=== PATIENT | male | born 1985 | race American Indian/Alaskan Native ===

== ENCOUNTER 2017-11-22 16:34 | Emergency (ER) | payer OTHER ==
[2017-11-22] MEDS ORDERED: NACL 0.9% 1000 ML 1,000 ML IV ONE (17:08)
[2017-11-22] MEDS ORDERED: XOPENEX IH ONE (17:08)
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
--- NOTE | 2017-11-22 17:30 | XRay Report ---
FINAL REPORT EXAM: XR CHEST 1V AP HISTORY: sob/chest pain TECHNIQUE: upright single view chest PRIORS: None. FINDINGS: Cardiac and mediastinal contours are unremarkable. No focal pulmonary infiltrate is identified. No pleural fluid collection seen. Pulmonary vasculature is unremarkable. IMPRESSION: Negative single-view chest
[2017-11-22 18:08] VITALS: BP 141/102
[2017-11-22 18:54] LABS: Basophils % (Auto) 0.4 % (0.0-1.8); Eosinophils % (Auto) 0.2 % (0.0-4.3); Hematocrit 45.5 % (35.5-45.6); Hemoglobin 15.9 gm/dl (11.8-15.2); Lymphocytes # (Auto) 2.8 K/mm3 (1.2-5.4); Lymphocytes % (Auto) 32.5 % (13.4-35.0); Mean Corpuscular HGB Conc 35 % (32-34); Mean Corpuscular Hemoglobin 27 pg (28-32); Mean Corpuscular Volume 77 fl (84-94); Monocytes # (Auto) 0.6 K/mm3 (0.0-0.8); Monocytes % (Auto) 7.2 % (0.0-7.3); Platelet Count 262 K/mm3 (140-440); Red Blood Count 5.91 M/mm3 (3.65-5.03); Red Cell Distribution Width 14.2 % (13.2-15.2)
[2017-11-22 19:03] LABS: BUN/Creatinine Ratio 12; Blood Urea Nitrogen 13 mg/dL (9-20); Calcium 8.5 mg/dL (8.4-10.2); Hemolysis Index 11
== END 2017-11-22 19:26 | disposition home or self-care (01) ==
LOC: ED 16:34
DX: J98.01 Acute bronchospasm (principal)
CPT/HCPCS: 36415; 71045; 80048; 84484; 85025; 94640; 96361; 96374; 99285; J2930; J7030

== ENCOUNTER 2020-08-12 15:33 | Emergency (ER) | payer SELFPAY ==
--- NOTE | 2020-08-12 16:44 | Emergency Department Report ---
ED Rash HPI - HPI Chief Complaint: Skin Rash Stated Complaint: POSS SCABIES Time Seen by Provider: 08/12/20 16:31 Duration: 5 Days Location: Other Suspected Cause: Other Rash Symptoms: Yes Itching, No Facial Swelling, No Tongue/Oral Swelling, No Breathing Difficulties, No Choking Sensation, No Wheezing/Dyspnea, No Peeling, No Blistering, No Fever, No Lightheaded, No Myalgias Severity: mild ED Review of Systems ROS: Stated complaint: POSS SCABIES Other details as noted in HPI Comment: All other systems reviewed and negative ED Past Medical Hx - Past Medical History Hx Asthma: Yes - Surgical History Past Surgical History?: No - Social History Smoking Status: Never Smoker Substance Use Type: None - Medications Home Medications: Home Medications Medication Instructions Recorded Confirmed Last Taken Type predniSONE [Deltasone] 20 mg PO QDAY #4 tab 11/22/17 Unknown Rx ALBUTEROL NEB's [Proventil 0.083% 2.5 mg IH TID PRN #1 box 05/30/18 Unknown Rx NEBS] Albuterol Mdi (or & Nicu Only) 2 puff IH QID PRN #1 inhalation 05/30/18 Unknown Rx [ProAir HFA Inhaler] predniSONE [Deltasone] 40 mg PO BID #8 tablet 05/30/18 Unknown Rx Permethrin [Nix LIQUID] 60 ml TP ONCE #60 liquid 08/12/20 Unknown Rx Rash Exam - Exam General: Vital signs noted. No distress. Alert and acting appropriately. HEENT: No Periorbital Edema, No Conjuctival Injection, No Chemosis, No Perioral Edema, No Tongue Edema, No Uvular Edema, No Compromised Airway, No Drooling Lungs: Yes Good Air Exchange (Normal Breath Sounds), No Wheezes, No Ronchi, No Stridor, No Cough, No Labored Respirations, No Retractions, No Use of Accessory Muscles, No Other Abnormal Lung Sounds Heart: Yes Regular, No Murmur Skin: Yes Erythema, No Maculopapular Rash, No Morbilliform rash, No Bulla(e), No Excoriations, No Weeping, No Edema, No Encrustations, No Other Other: Positive: Abdomen Normal, Neurologic Normal, Musculoskeletal Normal ED Course Vital Signs 08/12/20 16:34 Temperature 98.4 F Pulse Rate 114 H Respiratory 16 Rate Blood Pressure 167/105 O2 Sat by Pulse 98 Oximetry Critical care attestation.: If time is entered above; I have spent that time in minutes in the direct care of this critically ill patient, excluding procedure time. ED Disposition Clinical Impression: Rash and nonspecific skin eruption Disposition: DC-01 TO HOME OR SELFCARE Is pt being admited?: No Does the pt Need Aspirin: No Condition: Stable Instructions: Rash, Adult Prescriptions: Permethrin [Nix LIQUID] 60 ml TP ONCE #60 liquid Referrals: [facility] [Provider Group] - 3-5 Days
[2020-08-12 17:17] VITALS: BP 144/98
== END 2020-08-12 17:16 | disposition home or self-care (01) ==
LOC: ED 15:33
DX: R21 Rash and other nonspecific skin eruption (principal); J45.909 Unspecified asthma, uncomplicated; Z79.899 Other long term (current) drug therapy
CPT/HCPCS: 99282

== ENCOUNTER 2021-05-20 05:47 | Emergency (ER) | payer SELFPAY ==
[2021-05-20] MEDS ORDERED: predniSONE 20 MG TAB PO ONE (06:20)
[2021-05-20] MEDS ORDERED: IBUPROFEN 800 MG TAB PO ONE (06:20)
[2021-05-20] MEDS ORDERED: diphenhydrAMINE 25 MG CAP PO ONE (06:20)
--- NOTE | 2021-05-20 06:35 | XRay Report ---
XR chest routine 2V INDICATION / CLINICAL INFORMATION: sob chest pain. COMPARISON: 05/30/2018 FINDINGS: SUPPORT DEVICES: None. HEART /PULMONARY VASCULATURE: No significant abnormality. LUNGS / PLEURA: No significant pulmonary or pleural abnormality. No pneumothorax. ADDITIONAL FINDINGS: No significant additional findings. IMPRESSION: 1. No acute findings. Signer Name: Khris Eduardo MD Signed: 05/20/2021 6:31 AM Workstation Name: [id number]
--- NOTE | 2021-05-20 06:42 | Emergency Department Report ---
ED General Adult HPI - General Chief complaint: Chest Pain Stated complaint: CHEST PAIN Source: patient Mode of arrival: Ambulatory Limitations: No Limitations - History of Present Illness Initial comments: Patient 35-year-old male with bronchitis and asthma. Presents with sinus congestion rhinorrhea cough chest wall pain with cough. Patient denies shortness of breath there is no dizziness no lightheadedness no nausea or vomiting. Patient denies fevers or chills however does endorse malaise. Sinus and head pressure. Symptoms are exacerbated by movement and position. Symptoms are relieved by rest. Cough is productive green per patient. Patient endorse noc wheezing. . - Related Data Previous Rx's Medication Instructions Recorded Last Taken Type predniSONE [Deltasone] 20 mg PO QDAY #4 tab 11/22/17 Unknown Rx ALBUTEROL NEB's [Proventil 0.083% 2.5 mg IH TID PRN #1 box 05/30/18 Unknown Rx NEBS] Albuterol Mdi (or & Nicu Only) 2 puff IH QID PRN #1 inhalation 05/30/18 Unknown Rx [ProAir HFA Inhaler] predniSONE [Deltasone] 40 mg PO BID #8 tablet 05/30/18 Unknown Rx Permethrin [Nix LIQUID] 60 ml TP ONCE #60 liquid 08/12/20 Unknown Rx Albuterol Mdi (or & Nicu Only) 2 puff IH QID PRN #8.5 gram 05/20/21 Unknown Rx [ProAir HFA Inhaler] Azithromycin 500 mg PO DAILY #5 tablet 05/20/21 Unknown Rx Ibuprofen [Motrin 800 MG tab] 800 mg PO Q8HR PRN #30 tablet 05/20/21 Unknown Rx predniSONE [Deltasone] 40 mg PO QDAY 5 Days #10 tab 05/20/21 Unknown Rx Allergies Allergy/AdvReac Type Severity Reaction Status Date / Time No Known Allergies Allergy Unverified 11/22/17 17:00 ED Review of Systems ROS: Stated complaint: CHEST PAIN Other details as noted in HPI Constitutional: malaise. denies: chills, fever Eyes: denies: eye pain, eye discharge, vision change ENT: ear pain, throat pain, congestion Respiratory: cough, wheezing. denies: stridor Cardiovascular: chest pain (chest wall pain with cough ) Endocrine: no symptoms reported, intolerance to heat Gastrointestinal: denies: abdominal pain, nausea, vomiting, diarrhea Genitourinary: denies: urgency, dysuria Musculoskeletal: denies: back pain, joint swelling, arthralgia Skin: denies: rash, lesions Neurological: denies: headache, weakness, paresthesias, vertigo Psychiatric: denies: anxiety, depression Hematological/Lymphatic: denies: easy bleeding, easy bruising ED Past Medical Hx - Past Medical History Previous Medical History?: Yes Hx Asthma: Yes - Surgical History Past Surgical History?: No - Social History Smoking Status: Never Smoker Substance Use Type: None - Medications Home Medications: Home Medications Medication Instructions Recorded Confirmed Last Taken Type predniSONE [Deltasone] 20 mg PO QDAY #4 tab 11/22/17 Unknown Rx ALBUTEROL NEB's [Proventil 0.083% 2.5 mg IH TID PRN #1 box 05/30/18 Unknown Rx NEBS] Albuterol Mdi (or & Nicu Only) 2 puff IH QID PRN #1 inhalation 05/30/18 Unknown Rx [ProAir HFA Inhaler] predniSONE [Deltasone] 40 mg PO BID #8 tablet 05/30/18 Unknown Rx Permethrin [Nix LIQUID] 60 ml TP ONCE #60 liquid 08/12/20 Unknown Rx Albuterol Mdi (or & Nicu Only) 2 puff IH QID PRN #8.5 gram 05/20/21 Unknown Rx [ProAir HFA Inhaler] Azithromycin 500 mg PO DAILY #5 tablet 05/20/21 Unknown Rx Ibuprofen [Motrin 800 MG tab] 800 mg PO Q8HR PRN #30 tablet 05/20/21 Unknown Rx predniSONE [Deltasone] 40 mg PO QDAY 5 Days #10 tab 05/20/21 Unknown Rx ED Physical Exam - General Limitations: No Limitations General appearance: alert, in no apparent distress - Head Head exam: Present: normocephalic, normal inspection - Eye Eye exam: Present: normal appearance, PERRL, EOMI. Absent: conjunctival injection, nystagmus Pupils: Present: normal accommodation - ENT ENT exam: Present: normal orophraynx, normal external ear exam, other (bila max sinus pain , nares boggy , yellow brown rhinorrhea ) - Expanded ENT Exam Expanded Ear exam: Present: normal external inspection TM/Canal exam: Erythema: Right TM, Left TM Mouth exam: Absent: trismus Throat exam: Positive: tonsillar erythema, tonsillomegaly. Negative: tonsillar exudate, R peritonsillar mass, L peritonsillar mass - Neck Neck exam: Present: normal inspection, full ROM, lymphadenopathy. Absent: tenderness, meningismus - Respiratory Respiratory exam: Present: normal lung sounds bilaterally, chest wall tenderness (anterior lateral chest wall bilat ). Absent: respiratory distress, wheezes, stridor, prolonged expiratory - Cardiovascular Cardiovascular Exam: Present: regular rate, normal rhythm, normal heart sounds. Absent: systolic murmur, diastolic murmur, rubs, gallop - GI/Abdominal GI/Abdominal exam: Present: soft, normal bowel sounds. Absent: distended, tenderness - Rectal Rectal exam: Present: deferred - Extremities Exam Extremities exam: Present: normal inspection, full ROM, normal capillary refill. Absent: tenderness - Back Exam Back exam: Present: normal inspection, full ROM. Absent: CVA tenderness (R), CVA tenderness (L) - Neurological Exam Neurological exam: Present: alert, oriented X3, CN II-XII intact, normal gait - Psychiatric Psychiatric exam: Present: normal affect, normal mood - Skin Skin exam: Present: warm, dry, intact, normal color. Absent: rash ED Course Vital Signs 05/20/21 05:50 Pulse Rate 100 H Respiratory 18 Rate Blood Pressure 149/91 O2 Sat by Pulse 95 Oximetry ED Medical Decision Making - Radiology Data Radiology results: report reviewed, image reviewed XR chest routine 2V INDICATION / CLINICAL INFORMATION: sob chest pain. COMPARISON: 05/30/2018 FINDINGS: SUPPORT DEVICES: None. HEART /PULMONARY VASCULATURE: No significant abnormality. LUNGS / PLEURA: No significant pulmonary or pleural abnormality. No pneumothorax. ADDITIONAL FINDINGS: No significant additional findings. IMPRESSION: 1. No acute findings. Signer Name: Khris Eduardo MD Signed: 05/20/2021 6:31 AM Workstation Name: [id number] - Medical Decision Making Chest x-ray normal no opacities no infiltrates, there is bilateral sinus pain frontal and maxillary sinuses nares are boggy erythema yellow-brownish discharge. Pharynx is patent no lesions no exudate. This is likely sinus infection versus bronchitis. Plan refill butyryl inhaler, prednisone, ibuprofen as needed for chest wall pain. Azithromycin, follow-up with primary care doctor in 2 to 3 days. Turn to emergency department should symptoms worsen. Patient verbalized agreement and understanding with discharge plan. Patient will be DC'd home in stable condition at this time. Critical care attestation.: If time is entered above; I have spent that time in minutes in the direct care of this critically ill patient, excluding procedure time. ED Disposition Clinical Impression: Bronchitis Sinusitis Qualifiers: Sinusitis location: maxillary Chronicity: acute Recurrence: non-recurrent Qualified Code(s): J01.00 - Acute maxillary sinusitis, unspecified Disposition: HOME / SELF CARE / HOMELESS Is pt being admited?: No Does the pt Need Aspirin: No Condition: Stable Instructions: Chronic Bronchitis (ED), Sinusitis, Adult, [id number] Additional Instructions: Take medications as prescribed, follow-up with your doctor in 2 to 3 days, return to emergency department should symptoms worsen. Prescriptions: Azithromycin 500 mg PO DAILY #5 tablet predniSONE [Deltasone] 40 mg PO QDAY 5 Days #10 tab Ibuprofen [Motrin 800 MG tab] 800 mg PO Q8HR PRN #30 tablet PRN Reason: pain fever Albuterol Mdi (or & Nicu Only) [ProAir HFA Inhaler] 2 puff IH QID PRN #8.5 gram PRN Reason: Shortness Of Breath Referrals: GONZALO GARZA MD [Staff Physician] - 3-5 Days Forms: Work/School Release Form(ED) Time of Disposition: 06:49
[2021-05-20 07:19] VITALS: BP 147/106
== END 2021-05-20 07:24 | disposition home or self-care (01) ==
LOC: ED 05:47
DX: J40 Bronchitis, not specified as acute or chronic (principal); J01.00 Acute maxillary sinusitis, unspecified
CPT/HCPCS: 71046; 99283; J7512

== ENCOUNTER 2021-06-30 09:57 | Emergency (ER) | payer SELFPAY ==
[2021-06-30] MEDS ORDERED: dexAMETHasone 20 MG/5 ML VIAL IM ONE (12:41)
--- NOTE | 2021-06-30 12:42 | Emergency Department Report ---
- General Chief Complaint: Upper Respiratory Infection Stated Complaint: COUGH Time Seen by Provider: 06/30/21 12:15 Source: patient Mode of arrival: Ambulatory Limitations: No Limitations - History of Present Illness Initial Comments: 35-year-old male presents to the ER today with complaints of URI/allergy symptoms and cough. Patient states that he has been having recurrent symptoms since May 20, 2021. He was seen here on May 20 for the symptoms first started and was diagnosed with bronchitis and was prescribed Zithromax, prednisone and albuterol. Patient states that he feels like his symptoms are just not going away, he continues to have URI symptoms, including runny nose, nasal congestion, sneezing, nasal drainage postnasal and coughing. He also states that now he is having left-sided sharp chest pain that he notices when he takes a deep breath or coughs. He reports no shortness of breath or wheezing. He denies any lower extremity swelling or calf pain. He states that he took all medication that was prescribed to in April and he has also been using albuterol but he feels like is just not helping. He states that he is also been taking [id number] medications and they have not been helping. He states that he get these symptoms every year around this time. He does not currently have a primary care doctor. She states that he has been Covid tested multiple times since his symptoms started and do have all been negative. MD Complaint: cough, rhinorrhea, nasal congestion, other -: month(s) (Left-sided chest pain2) - Related Data Previous Rx's Medication Instructions Recorded Last Taken Type ALBUTEROL NEB's [Proventil 0.083% 2.5 mg IH TID PRN #1 box 05/30/18 Unknown Rx NEBS] Albuterol Mdi (or & Nicu Only) 2 puff IH QID PRN #1 inhalation 05/30/18 Unknown Rx [ProAir HFA Inhaler] Albuterol Mdi (or & Nicu Only) 2 puff IH QID PRN #8.5 gram 05/20/21 Unknown Rx [ProAir HFA Inhaler] Amoxicillin/Potassium Clav 1 each PO Q12HR #14 tablet 06/30/21 Unknown Rx [Augmentin 875-125 Tablet] Benzonatate [Tessalon Perles] 100 mg PO Q8HR PRN #30 capsule 06/30/21 Unknown Rx Fexofenadine HCl [María Allergy] 180 mg PO DAILY #30 tablet 06/30/21 Unknown Rx Triamcinolone Acetonide [Nasacort 1 ml NS Q12H #1 spray 06/30/21 Unknown Rx SPRAY] Allergies Allergy/AdvReac Type Severity Reaction Status Date / Time No Known Allergies Allergy Unverified 11/22/17 17:00 ED Review of Systems ROS: Stated complaint: COUGH Other details as noted in HPI Comment: All other systems reviewed and negative Constitutional: denies: chills, fever Eyes: denies: eye pain, eye discharge, vision change ENT: congestion, other (Rhinorrhea). denies: ear pain, throat pain, dental pain, hearing loss, epistaxis Respiratory: cough. denies: orthopnea, shortness of breath, SOB with exertion, SOB at rest, wheezing Cardiovascular: chest pain Gastrointestinal: denies: abdominal pain, nausea, diarrhea, constipation, hematemesis, melena, hematochezia Genitourinary: denies: urgency, dysuria, frequency, hematuria, discharge, testicular pain, testicular mass Musculoskeletal: denies: back pain, joint swelling, arthralgia, myalgia Skin: denies: rash, lesions, change in color, change in hair/nails, pruritus Neurological: denies: headache, weakness, numbness, paresthesias, abnormal gait, vertigo Psychiatric: denies: anxiety, depression, auditory hallucinations, visual hallucinations, homicidal thoughts, suicidal thoughts Hematological/Lymphatic: denies: easy bleeding, easy bruising ED Past Medical Hx - Past Medical History Hx Asthma: Yes - Social History Smoking Status: Never Smoker Substance Use Type: None - Medications Home Medications: Home Medications Medication Instructions Recorded Confirmed Last Taken Type ALBUTEROL NEB's [Proventil 0.083% 2.5 mg IH TID PRN #1 box 05/30/18 Unknown Rx NEBS] Albuterol Mdi (or & Nicu Only) 2 puff IH QID PRN #1 inhalation 05/30/18 Unknown Rx [ProAir HFA Inhaler] Albuterol Mdi (or & Nicu Only) 2 puff IH QID PRN #8.5 gram 05/20/21 Unknown Rx [ProAir HFA Inhaler] Amoxicillin/Potassium Clav 1 each PO Q12HR #14 tablet 06/30/21 Unknown Rx [Augmentin 875-125 Tablet] Benzonatate [Tessalon Perles] 100 mg PO Q8HR PRN #30 capsule 06/30/21 Unknown Rx Fexofenadine HCl [María Allergy] 180 mg PO DAILY #30 tablet 06/30/21 Unknown Rx Triamcinolone Acetonide [Nasacort 1 ml NS Q12H #1 spray 06/30/21 Unknown Rx SPRAY] ED Physical Exam - General Limitations: No Limitations General appearance: alert, in no apparent distress - Head Head exam: Present: atraumatic, normocephalic, normal inspection - Eye Eye exam: Present: normal appearance, PERRL, EOMI Pupils: Present: normal accommodation - ENT ENT exam: Present: normal exam, mucous membranes moist, other (Positive nasal congestion) - Neck Neck exam: Present: normal inspection, full ROM. Absent: meningismus - Respiratory Respiratory exam: Present: normal lung sounds bilaterally. Absent: respiratory distress, wheezes, rales, rhonchi - Cardiovascular Cardiovascular Exam: Present: regular rate, normal rhythm, normal heart sounds - GI/Abdominal GI/Abdominal exam: Present: soft. Absent: tenderness, guarding, rebound - Neurological Exam Neurological exam: Present: alert, oriented X3, CN II-XII intact, normal gait - Psychiatric Psychiatric exam: Present: normal affect, normal mood - Skin Skin exam: Present: intact ED Course Vital Signs 06/30/21 06/30/21 10:49 13:45 Temperature 98.4 F Pulse Rate 98 H 100 H Respiratory 17 18 Rate Blood Pressure 154/112 Blood Pressure 150/99 [Left] O2 Sat by Pulse 98 Oximetry ED Medical Decision Making - EKG Data EKG shows normal: sinus rhythm Rate: tachycardia (102) No standard instances P Waves: LAE - EKG Data Interpretation: LVH - Radiology Data Radiology results: report reviewed Patient: MARINA MATOS MR#: [id number] 77 : 1985 Acct:[id number] Age/Sex: 35 / M ADM Date: 06/30/21 Loc: ED Attending Dr: Ordering Physician: CHYNA BRAY Date of Service: 06/30/21 Procedure(s): XR chest routine 2V Accession Number(s): [id number] cc: CHYNA BRAY Fluoro Time In Minutes: CHEST 2 VIEWS INDICATION: CP/cough. COMPARISON: Chest x-ray from 05/20/2021 FINDINGS: SUPPORT DEVICES: None. HEART: Within normal limits. LUNGS/PLEURA: No acute air space or interstitial disease. No pneumothorax. ADDITIONAL FINDINGS: None. IMPRESSION: 1. No acute findings. Signer Name: Jewel Montoya MD Signed: 06/30/2021 1:16 PM Workstation Name: [id number] Transcribed By: SUNG Dictated By: Jewel Montoya MD Electronically Authenticated By: Jewel Montoya MD Signed Date/Time: 06/30/21 1316 DD/ 1315 TD/TT: - Medical Decision Making 1357: Chest x-ray shows nothing acute. EKG negative for STEMI, acute ischemic changes or significant dysrhythmias. Patient currently resting comfortably. He is not in any significant pain or respiratory distress. He is awake alert and oriented x3. He is neurologically intact with a normal gait. He has no meningeal signs on exam. Discussed results with patient. Patient has been having these symptoms since April and he states that he gets similar symptoms every year around this time. He states that he is just concerned as just not going away. Informed patient that his symptoms could be related to recurrent URIs, acute on chronic or just chronic sinusitis, or allergic rhinitis or acute on chronic bronchitis. Informed patient that he will need to be on medication to help control his symptoms, but most importantly he will need to follow-up with PCP or specialist like a ENT or an lens cementer. At this time we will give you medication to help his symptoms. I do not believe that his chest pain at this time is related to unstable angina, PE (PERC 0), aortic dissection, sepsis, or any other emergent conditions warranting any additional testing, or admission at this time. Patient vital signs are stable. Patient expressed understanding of all instructions and agree with plan. Patient stable at time of discharge. Critical care attestation.: If time is entered above; I have spent that time in minutes in the direct care of this critically ill patient, excluding procedure time. ED Disposition Clinical Impression: Sinusitis, URI (upper respiratory infection), Bronchitis, Nonspecific chest pain, Allergic rhinitis Disposition: HOME / SELF CARE / HOMELESS Is pt being admited?: No Does the pt Need Aspirin: No Condition: Stable Instructions: Sinusitis, Adult, [id number], Allergic Rhinitis, Adult, [id number], Nonspecific Chest Pain, Adult, Acute Bronchitis, Adult, Chronic Bronchitis (ED) Additional Instructions: Take the augmentin, and use the nasocort and the María as prescribed. The Tessalon Perles to help with cough. Continue to use the albuterol MDI as needed. I recommend follow up with Primary care listed on your discharge instructions, you may want to follow up with lens cementer or ENT. ENT will be provided for you on your discharge instructions. You can take Tylenol and/or ibuprofen for any pain. Return to the ER if your symptoms worsens in any way. Prescriptions: Fexofenadine HCl [María Allergy] 180 mg PO DAILY #30 tablet Amoxicillin/Potassium Clav [Augmentin 875-125 Tablet] 1 each PO Q12HR #14 tablet Triamcinolone Acetonide [Nasacort SPRAY] 1 ml NS Q12H #1 spray Benzonatate [Tessalon Perles] 100 mg PO Q8HR PRN #30 capsule PRN Reason: Cough Referrals: PRIMARY CARE, [Primary Care Provider] - 3-5 Days JUANCHO CAMACHO MD [Staff Physician] - 3-5 Days NIKO RASHID MD [Staff Physician] - 3-5 Days Time of Disposition: 13:40
--- NOTE | 2021-06-30 13:20 | XRay Report ---
CHEST 2 VIEWS INDICATION: CP/cough. COMPARISON: Chest x-ray from 05/20/2021 FINDINGS: SUPPORT DEVICES: None. HEART: Within normal limits. LUNGS/PLEURA: No acute air space or interstitial disease. No pneumothorax. ADDITIONAL FINDINGS: None. IMPRESSION: 1. No acute findings. Signer Name: Jewel Montoya MD Signed: 06/30/2021 1:16 PM Workstation Name: [email or web address]
[2021-06-30 13:53] VITALS: BP 150/99
--- NOTE | 2021-07-01 13:07 | Electrocardiograph Report ---
[facility] Test Date: 2021-06-30 Test Time: 13:20:21 Pat Name: MARINA MATOS Department: Room: Gender: M [employer]: NURSE : 1985 Requested By: CHYNA BRAY Order Number: [id number] Reading MD: Chacha Jarvis Measurements Intervals [place] Rate: 102 P: 52 VA: 150 QRS: 5 QRSD: 96 T: 57 QT: 332 QTc: 433 Interpretive Statements Sinus tachycardia Probable left atrial enlargement Probable left ventricular hypertrophy Nonspecific J-point elevation anteroseptal leads No previous ECG available for comparison Electronically Signed On 07-01-2021 13:07:28 EST by Chacha Jarvis
== END 2021-06-30 13:53 | disposition home or self-care (01) ==
LOC: ED 09:57
DX: J32.9 Chronic sinusitis, unspecified (principal); J06.9 Acute upper respiratory infection, unspecified; J20.9 Acute bronchitis, unspecified; J30.9 Allergic rhinitis, unspecified
CPT/HCPCS: 71046; 93005; 96372; 99283; J1100